=== PATIENT | male | born 1995 | race Caucasian/White ===

== ENCOUNTER → 2023-05-13 | Outpatient (CLI) | payer MEDICAID, SELFPAY ==
--- NOTE | 2023-05-13 | LES_PTH ---
PATIENT: BARRINGTON QUIROZ LOC: [facility] U#:[id number] AGE/SX: 27/M ROOM: RE05/13/[address]: Dr. Sarthak Vera MD : 1995 BED: DIS: 05/13/2023 SPEC #: [id number] RECD: 05/13/23 17:03 STATUS: KARLIE RELeonel #: [id number] JENNY: 05/13/23 00:[address]: Sarthak Vera DEPT: SURGICAL PATHOLOGY RECD BY: Jay Crenshaw ENTERED: 05/16/23 09:36 SP TYPE: Lesion OTHR DR: Dr. Radha Diego MD Tissues: Skin of back, NOS Procedures: Surgery Specimen Level IV HEADER OPERATION: Excision of back lesion PRE-OP DIAGNOSIS: Back lesion TISSUE SUBMITTED: Back lesion tissue MICROSCOPIC DIAGNOSIS Skin lesion of back, biopsy: Compound nevus with predominantly intradermal component. AM:lucian 05/17/2023 MICROSCOPIC DESCRIPTION Slides are reviewed. GROSS DESCRIPTION Received in fixative is one container labeled with the patient's name and designated back skin. The specimen consists of an ellipse of light [place] excised skin measuring 1.5 x 0.8 cm and excised to a depth of 0.7 cm. The cutaneous surface displays a flat, plaque-like, [place] lesion measuring 5.0 mm in greatest dimension. The specimen is inked, serially sectioned and totally submitted in one cassette. / AM:lucian 05/16/2023 :5 CPT:58070
== END | disposition home or self-care (01) ==
PROVIDERS: PCP Pediatrics; Visit Provider Surgery
DX: D23.5 Other benign neoplasm of skin of trunk (principal)
CPT/HCPCS: 88305

== ENCOUNTER 2024-04-21 13:49 | Emergency (ER) | payer SELFPAY ==
[2024-04-21 13:50] VITALS: BP 152/88; PULSE 57; RESP 18; TEMP 37; O2SAT 95; BMI 24.8
--- NOTE | 2024-04-21 14:07 | RAD_ITS ---
STUDY: X-RAY - LEFT ELBOW REASON FOR EXAM: Male, 28 years old. injury TECHNIQUE: 3 view(s) of the elbow. Lateral view is limited due to positioning. COMPARISON: None. FINDINGS: Normal visualized humerus, radius and ulna. Normal radiocapitellar and ulnotrochlear articulations. The soft tissue structures are unremarkable. RAD/Elbow min 3 Views IMPRESSION: No obvious fracture or malalignment. Electronically Signed: Butch Beard MD ([facility]) at 14:45 EDT ,
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
[2024-04-21] MEDS: Ibuprofen 600 MG Tablet PO (14:15)
--- NOTE | 2024-04-21 14:20 | RAD_ITS ---
STUDY: X-RAY - LEFT SHOULDER REASON FOR EXAM: Male, 28 years old. Injury, pain TECHNIQUE: 3 view(s) of the shoulder. COMPARISON: None. FINDINGS: Normal glenohumeral articulation. Normal acromioclavicular joint. Normal acromion. Normal humeral head and visualized proximal humerus. The soft tissue structures are unremarkable. Congenital fusion anomalies of the ribs. Normal visualized pulmonary apex. RAD/Shoulder min 2 Views IMPRESSION: 1. No fracture or malalignment. Electronically Signed: Butch Beard MD ([place]) at 14:46 EDT ,
[2024-04-21 15:43] VITALS: BP 120/62; PULSE 59; RESP 18; TEMP 37.1; O2SAT 96
== END 2024-04-21 15:44 | disposition home or self-care (01) ==
PROVIDERS: Emergency Provider Emergency Medicine; PCP Pediatrics; Visit Provider Emergency Medicine
DX: S50.02XA Contusion of left elbow, initial encounter (principal); S40.012A Contusion of left shoulder, initial encounter; V49.40XA Driver injured in collision with unspecified motor vehicles in traffic accident, initial encounter
CPT/HCPCS: 73030; 73080; 99282

== ENCOUNTER 2025-05-22 10:15 | Emergency (ER) | payer OTHER, MEDICAID, SELFPAY ==
[2025-05-22 10:16] VITALS: BP 98/61; PULSE 57; RESP 15; TEMP 36.6; O2SAT 99; BMI 25.9
--- NOTE | 2025-05-22 10:32 | ED.RN ---
Spoke with Experimental [employer]ic [employer] Traci who stated he did not need drug or alcohol screening
--- NOTE | 2025-05-22 10:49 | EDS_ITS ---
HPI History of Present Illness Chief Complaint: Lower Extremity Injury Narrative Narrative: Chief complaint and HPI: 29-year-old male with no significant past medical history presents with mother for evaluation of left lower extremity abrasion/pain after work injury. 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 States that his left leg fell between his scalp. Did not hit his head. No LOC. Obtained abrasions to the left lower extremity. Endorses pain mostly on the proximal medial aspect of the calf. Denies any numbness or tingling. Review of systems: See HPI Medications: As listed on the chart Allergies: As listed on the chart PFSH: Per chart Vital signs: As listed on the chart. Reviewed. Physical exam: Gen: A&O x3, NAD Head: Normocephalic, atraumatic Eyes: No sclera icterus, conjunctiva clear ENT: Moist mucous membranes Neck: Trachea midline CV: RRR, no murmurs Resp: Lungs CTA BL, no w/r/c Musc: Full ROM, no deformity, strength + 5 out of 5 in all extremities, multiple scattered abrasions to the left lower extremity without laceration that need to repaired, DP/PT pulses +2 bilaterally, good capillary refill, sensation intact, compartments soft, small hematoma to the lateral left thigh, small hematoma to the medial proximal calf with tenderness to palpation Skin: Warm, dry Neuro: Alert, oriented, grossly intact Psych: Cooperative, appropriate mood and affect [facility] Medical History Hammer toe Skin lesion of back Home Medications ?Medication ?Instructions ?Recorded ?Last Taken ?Type NK 10/14/22 Unknown History Allergy/AdvReac Type Severity Reaction Status Date / Time chlorhexidine (From Allergy Intermediate Rash Verified 05/22/25 10:20 ChloraPrep Clear) isopropyl alcohol (From Allergy Intermediate Rash Verified 05/22/25 10:20 ChloraPrep Clear) amoxicillin Allergy Unknown PT UNSURE Verified 05/22/25 10:20 OF REACTION iodine Allergy Unknown PT UNSURE Verified 05/22/25 10:20 OF REACTION cefdinir (From Omnicef) Allergy NEEDS Verified 05/22/25 10:20 FOLLOW-UP Family History Other Diabetes Hypertension Primary ciliary dyskinesia Surgical History History of local excision of skin lesion Herniated disc Social History adopted: No household members: family housing: house number of children: 0 current occupational status: employed 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 pets and animals: Yes pets and animals: cat(s) leisure activities: hunting, fishing and other history of recent travel: Yes out of state: Yes out of country: No sexually active: Yes Smoking Status: Never smoker alcohol intake: never substance use type: does not use well-balanced diet: daily or most days caffeine: Yes eating out: 1-3 times/week during the past year weight has: remained stable what type of physical activity do you participate in: other details: physical job saurav/yazidism: Mormonism seatbelt use: always do you feel safe at home: Yes EXAM Physical Exam Const Vital Signs: 05/22/25 10:16 Temperature 97.9 F Temperature Source Oral Pulse Rate 57 L Respiratory Rate 15 Blood Pressure 98/61 Blood Pressure Mean 73 Pulse Ox 99 Oxygen Delivery Method Room Air MDM MDM MDM Narrative Medical decision making narrative: 29-year-old male with no significant past medical history presents with mother for evaluation of left lower extremity abrasion/pain after work injury. 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 States that his left leg fell between his scalp. Did not hit his head. No LOC. Obtained abrasions to the left lower extremity. Endorses pain mostly on the proximal medial aspect of the calf. Denies any numbness or tingling. See physical exam findings. Differential diagnosis includes but is not limited to contusion, abrasion, fracture. Tylenol ordered for pain. Patient declined tetanus update. X-ray of the tib-fib ordered. X- ray of the tib-fib was personally viewed interpreted by me, ED physician. No fracture or dislocation. Radiology in agreement. Patient's symptoms are likely secondary to contusion. Follow-up with Worker's Compensation. Monitor for signs of infection of the abrasion. Tylenol Motrin as needed for pain. He confirmed understand the plan. Patient will discharge home. Impression: 1. Left lower extremity abrasion 2. Left lower extremity contusion 3. Injury at work Radiography Diagnostic Testing: Clinical Impression(s) from Imaging Studies Tibia/Fibula X-Ray 05/22/25 11:15 IMPRESSION: No fracture or dislocation is identified. Reading Location: [facility] Discharge Plan Triage Chief Complaint: Lower Extremity Injury ED Provider: Salomón Wallace Dx/Rx/DC Orders Clinical Impression: Contusion of left calf, Abrasion Instructions: Bruises (Contusions), ED Abrasion Prescriptions: No Action NK Primary Care Provider: Charlotte Oscar Referrals: Corporate,[facility] [[facility] of Phys[facility], Medical] - 3-5 Days Activity Restrictions/Additional Instructions: Monitor for infection of your abrasions. Tylenol and Motrin as needed for pain. Received Tylenol here in the emergency department. Follow-up with Worker's Compensation. Return back to ED if symptoms change or worsen. Print Language: Azeri Disposition Disposition: Home, Self Care
--- NOTE | 2025-05-22 11:15 | RAD_ITS ---
PROCEDURE: TIBIA FIBULA 2 VIEWS 05/22/2025 REASON FOR EXAM: PAIN TECHNIQUE: Procedure Code: RADTF Modality: DX Procedure: TIBIA FIBULA 2 VIEWS Five views of the left tibia and fibula COMPARISON: None FINDINGS: There is no fracture or dislocation. No suspicious lytic or blastic lesions are identified. There is no soft tissue abnormality or radiopaque foreign body. Mineralization is normal. RAD/Tibia & Fibula 2 Views IMPRESSION: No fracture or dislocation is identified. Reading Location: [facility]
== END 2025-05-22 12:22 | disposition home or self-care (01) ==
PROVIDERS: Emergency Provider Surgery; PCP Internal Medicine; Visit Provider Surgery
DX: S80.812A Abrasion, left lower leg, initial encounter (principal); S80.12XA Contusion of left lower leg, initial encounter; Y92.812 Truck as the place of occurrence of the external cause; X58.XXXA Exposure to other specified factors, initial encounter
CPT/HCPCS: 73590; 99282